=== PATIENT | female | born 1940 ===

== ENCOUNTER 2017-07-16 03:44 | Outpatient (CLI) | payer OTHER | END 2017-07-16 03:45 | disposition home or self-care (01) | LOC: BICULT 03:44 | PROVIDERS: ATTEND Internal Medicine Gastroenterology | DX: Z12.11 Encounter for screening for malignant neoplasm of colon (principal); R13.10 Dysphagia, unspecified; R10.9 Unspecified abdominal pain; R10.13 Epigastric pain; R19.4 Change in bowel habit | CPT/HCPCS: 76700 ==